=== PATIENT | female | born 1945 | race Caucasian/White ===

== ENCOUNTER 2021-01-09 13:02 | Inpatient (IN) ==
[2021-01-09] MEDS ORDERED: DIPHTH,PERTUSS(ACELL),TET VAC 0.5 ML VIAL IM ONE (13:12)
[2021-01-09] MEDS ORDERED: fentaNYL CITRATE/PF 50 MCG/ML AMPUL ONE (13:29)
[2021-01-09] MEDS ORDERED: ONDANSETRON HCL/PF 2 MG/ML VIAL ONE (13:30)
[2021-01-09] MEDS ORDERED: fentaNYL CITRATE/PF 50 MCG/ML AMPUL IV ONE ×3 (13:32→14:53)
[2021-01-09] MEDS ORDERED: ONDANSETRON HCL/PF 2 MG/ML VIAL IV ONE ×2 (13:36→15:00)
[2021-01-09] MEDS ORDERED: NORMAL SALINE 1,000 ML IV ONE (13:37)
[2021-01-09 13:40] LABS: Hematocrit 34.9 % (37.0-47.0); Hemoglobin 11.6 gm/dL (12.5-16.0); Mean Cell Volume 95.1 fl (78-100); Mean Corpuscular Hemoglobin 31.6 pg (27-31); Mean Corpuscular Hgb Conc 33.2 g/dl (32-36); Mean Platelet Volume 10.7 fl (8-12.5); Neutrophil # 5.5 K/mm3 (1.3-6.0); Neutrophil % 67.4 % (42-75.0); Platelet Count 173 K/mm3 (150-450); Red Blood Count 3.67 M/mm3 (4.2-5.4); Red Cell Distribution Width 12.2 % (11.5-14.0); White Blood Count 8.2 K/mm3 (4.0-10.5)
[2021-01-09 13:50] LABS: Prothrombin Time (Patient) 10.9 Seconds (9.1-10.7)
[2021-01-09 13:51] LABS: INR 1.05 INR (0.92-1.08); Partial Thrombolplastin Time 22.2 Seconds (24-32)
[2021-01-09 14:02] LABS: ALT 48 U/L (19-67); AST 44 U/L (0-48); Albumin * 3.4 gm/dl (3.4-5.0); Alkaline Phosphatase * 102 U/L (50-170); Anion Gap 13.2 mmol/L (6.8-13.8); BUN/Creatinine Ratio 18.3 (9.0-21.6); Bilirubin, Total 0.3 mg/dL (0.0-1.1); Blood Urea Nitrogen 21 mg/dL (3-23); Calcium * 8.8 mg/dL (7.9-10.9); Carbon Dioxide 24.4 mmol/L (24-32.6); Chloride 106 mmol/L (97-106); Glucose * 195 mg/dL (70-110); Potassium 3.6 mmol/L (3.4-4.6); Sodium 140 mmol/L (132-142); Total Protein 6.8 gm/dL (6.2-8.2); Troponin I Less than 0.017 ng/mL (0.00-0.10)
[2021-01-09] MEDS ORDERED: LORazepam 2 MG/ML DISP.SYRIN IV ONE (15:46)
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
[2021-01-09] MEDS ORDERED: LORazepam 2 MG/ML DISP.SYRIN IV PRN (19:35)
[2021-01-09] MEDS: NORMAL SALINE 1,000 ML IV PRN (20:16)
[2021-01-09] MEDS: LOSARTAN POTASSIUM 50 MG TABLET PO SCH (21:06)
[2021-01-10] MEDS: NORMAL SALINE 1,000 ML IV PRN ×3 (04:19→19:35)
[2021-01-10] MEDS: LEVOTHYROXINE SODIUM 100 MCG TABLET PO SCH (05:27)
[2021-01-10] MEDS: MORPHINE SULFATE 4 MG/ML SYRG IV PRN ×4 (05:27→17:34)
[2021-01-10 07:40] LABS: Hematocrit 25.7 % (37.0-47.0); Hemoglobin 8.6 gm/dL (12.5-16.0); Mean Cell Volume 94.1 fl (78-100); Mean Corpuscular Hemoglobin 31.5 pg (27-31); Mean Corpuscular Hgb Conc 33.5 g/dl (32-36); Mean Platelet Volume 10.7 fl (8-12.5); Neutrophil # 3.3 K/mm3 (1.3-6.0); Neutrophil % 65.2 % (42-75.0); Platelet Count 128 K/mm3 (150-450); Red Blood Count 2.73 M/mm3 (4.2-5.4); Red Cell Distribution Width 12.5 % (11.5-14.0)
[2021-01-10] MEDS: ONDANSETRON HCL/PF 2 MG/ML VIAL IV PRN ×3 (07:44→17:29)
[2021-01-10] MEDS: DILTIAZEM HCL 120 MG CAP.SR.24H PO SCH (08:16)
[2021-01-10] MEDS: LOSARTAN POTASSIUM 50 MG TABLET PO SCH ×2 (08:16→20:36)
[2021-01-10 15:50] LABS: Hematocrit 25.9 % (37.0-47.0); Hemoglobin 8.7 gm/dL (12.5-16.0); Mean Cell Volume 95.6 fl (78-100); Mean Corpuscular Hemoglobin 32.1 pg (27-31); Mean Corpuscular Hgb Conc 33.6 g/dl (32-36); Mean Platelet Volume 10.1 fl (8-12.5); Neutrophil % 57.9 % (42-75.0); Platelet Count 116 K/mm3 (150-450); Red Blood Count 2.71 M/mm3 (4.2-5.4); Red Cell Distribution Width 12.7 % (11.5-14.0); White Blood Count 5.1 K/mm3 (4.0-10.5)
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
[2021-01-10] MEDS: ATENOLOL 25 MG TABLET PO SCH (20:36)
[2021-01-11] MEDS: MORPHINE SULFATE 4 MG/ML SYRG IV PRN ×2 (02:51→07:05)
[2021-01-11] MEDS: ONDANSETRON HCL/PF 2 MG/ML VIAL IV PRN ×4 (02:51→15:29)
[2021-01-11] MEDS: NORMAL SALINE 1,000 ML IV PRN ×2 (03:40→11:42)
[2021-01-11] MEDS: LEVOTHYROXINE SODIUM 100 MCG TABLET PO SCH (05:41)
[2021-01-11 06:50] LABS: Hematocrit 24.9 % (37.0-47.0); Hemoglobin 8.3 gm/dL (12.5-16.0); Mean Corpuscular Hemoglobin 31.7 pg (27-31); Mean Corpuscular Hgb Conc 33.3 g/dl (32-36); Mean Platelet Volume 10.5 fl (8-12.5); Neutrophil # 3.7 K/mm3 (1.3-6.0); Platelet Count 120 K/mm3 (150-450); Red Blood Count 2.62 M/mm3 (4.2-5.4); Red Cell Distribution Width 12.3 % (11.5-14.0); White Blood Count 6.1 K/mm3 (4.0-10.5)
[2021-01-11 06:53] LABS: Anion Gap 11.1 mmol/L (6.8-13.8); BUN/Creatinine Ratio 11.5 (9.0-21.6); Carbon Dioxide 24.8 mmol/L (24-32.6); Estimated Creat Clear 44.8; Potassium 3.9 mmol/L (3.4-4.6)
[2021-01-11] MEDS: DILTIAZEM HCL 120 MG CAP.SR.24H PO SCH (08:32)
[2021-01-11] MEDS: LOSARTAN POTASSIUM 50 MG TABLET PO SCH ×2 (08:32→20:15)
[2021-01-11] MEDS ORDERED: fentaNYL 12 MCG PATCH.TD72 TD SCH (10:30)
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
[2021-01-11] MEDS: ATENOLOL 25 MG TABLET PO SCH (20:15)
[2021-01-12] MEDS: ACETAMINOPHEN 500 MG TABLET PO PRN ×2 (02:27→13:25)
[2021-01-12] MEDS: ONDANSETRON HCL/PF 2 MG/ML VIAL IV PRN ×3 (02:39→18:57)
[2021-01-12] MEDS: LEVOTHYROXINE SODIUM 100 MCG TABLET PO SCH (07:16)
[2021-01-12] MEDS: LOSARTAN POTASSIUM 50 MG TABLET PO SCH ×2 (08:51→21:34)
[2021-01-12] MEDS: DILTIAZEM HCL 120 MG CAP.SR.24H PO SCH (08:51)
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
[2021-01-12] MEDS ORDERED: fentaNYL 25 MCG PATCH.TD72 TD SCH (18:00)
[2021-01-12] MEDS: ATENOLOL 25 MG TABLET PO SCH (21:34)
[2021-01-13] MEDS ORDERED: SIMETH PO PRN (00:43)
[2021-01-13] MEDS ORDERED: MAG HYDROX PO PRN (00:43)
[2021-01-13] MEDS ORDERED: ALUMINUM HYD PO PRN (00:43)
[2021-01-13] MEDS: ACETAMINOPHEN 500 MG TABLET PO PRN ×2 (01:31→10:18)
[2021-01-13] MEDS: ONDANSETRON HCL/PF 2 MG/ML VIAL IV PRN ×2 (01:31→10:19)
[2021-01-13] MEDS ORDERED: MAG HYDROX/ALUMINUM HYD/SIMETH 30 ML UDC ONE (01:32)
[2021-01-13] MEDS: LEVOTHYROXINE SODIUM 100 MCG TABLET PO SCH (06:05)
[2021-01-13] MEDS: DILTIAZEM HCL 120 MG CAP.SR.24H PO SCH (08:38)
[2021-01-13] MEDS: LOSARTAN POTASSIUM 50 MG TABLET PO SCH (08:38)
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
[2021-01-13] MEDS ORDERED: CLOPIDOGREL BISULFATE 75 MG TABLET PO SCH (09:00)
[2021-01-13 09:21] LABS: Urine Bilirubin Negative (NEGATIVE); Urine Blood 50 /ul (NEGATIVE); Urine Ketone Negative (NEGATIVE); Urine Nitrite Negative (NEGATIVE); Urine Protein Negative (NEGATIVE); Urine Specific Gravity 1.015 SP.GR. (1.005-1.010); Urine Urobilinogen Normal (NORMAL); Urine pH 7.5 pH (5.0-7.0)
[2021-01-13] MEDS ORDERED: MAG HYDROX/ALUMINUM HYD/SIMETH 30 ML UDC PO PRN (09:45)
[2021-01-13 10:27] LABS: Urine Appearance Slightly Cloudy (CLEAR); Urine Color Yellow
[2021-01-13 10:28] LABS: Urine Bacteria 3+; Urine RBC 0-5 /hpf (0-5); Urine WBC 25-50 /hpf (0-5)
[2021-01-13 10:39] VITALS: BP 145/68
[2021-01-13] MEDS ORDERED: MAGNESIUM CITRATE 300 ML BTL PO ONE (10:56)
== END 2021-01-13 11:45 | DRG 184 ==
LOC: MS 13:02 → ER 13:02 → MS 17:37
PROVIDERS: ADMIT Family Medicine; ATTEND Family Medicine
DX: S60.222A Contusion of left hand, initial encounter; S61.411A Laceration without foreign body of right hand, initial encounter; S80.12XA Contusion of left lower leg, initial encounter; M54.2 Cervicalgia; M79.18 Myalgia, other site; S32.038A Other fracture of third lumbar vertebra, initial encounter for closed fracture; R35.0 Frequency of micturition; S40.022A Contusion of left upper arm, initial encounter; D62 Acute posthemorrhagic anemia; I48.91 Unspecified atrial fibrillation; V43.53XA Car driver injured in collision with pick-up truck in traffic accident, initial encounter; S70.01XA Contusion of right hip, initial encounter; S22.41XA Multiple fractures of ribs, right side, initial encounter for closed fracture